=== PATIENT | female | born 1975 | race Hispanic/Latino ===

== ENCOUNTER 2019-08-08 10:35 | Emergency (ER) | payer OTHER, SELFPAY ==
[2019-08-08 10:40] VITALS: BP 117/75; PULSE 72; RESP 13; TEMP 35.8; O2SAT 99
--- NOTE | 2019-08-08 11:51 | DI.RAD.S_ITS ---
PROCEDURE: XR WRIST LT MIN 3V INDICATIONS: injury TECHNIQUE: 4 views of the wrist were acquired. COMPARISON: [facility], , WRIST MINIMUM 3 VIEWS LEFT, 11/18/2016, 15:39. FINDINGS: Bones: No fractures or dislocations. No suspicious bony lesions. Scaphoid view: Scaphoid is grossly intact. Soft tissues: No suspicious soft tissue calcifications. IMPRESSION: No acute left wrist fracture or dislocation. Dictated by: Michoacano Nuno M.D. on 08/08/2019 at 12:49 Approved by: Michoacano Nuno M.D. on 08/08/2019 at 12:52
--- NOTE | 2019-08-08 13:13 | ED.UPPEXIN ---
HPI - Extremity Injury (Upper) <Arnold DowdRODNEY jonesP - Last Filed: 08/08/19 21:12> General Chief Complaint: Extremity Injury, Upper Stated Complaint: LEFT WRIST HURTING TRIPPED AND CAUGHT SELF ON TABL Time Seen by Provider: 08/08/19 13:12 Source: patient Mode of arrival: Ambulatory Limitations: no limitations History of Present Illness HPI narrative: This is 44-year-old female, nonsmoker, who presents to ED with her spouse with chief complain of left crossing wrist pain for last 4-5 days. Patient had FOOSH on a desk to break a fall on Thursday while she was rushing to the bathroom to to vomit. Patient reports pain was not too bad initially and it has been getting worse the next day. Patient reports pain radiates up to her elbow and upper arm with movement. She noticed decreased active range of motion due to pain. Patient at times feels tingling and numbness radiating up to upper arm with some swelling on her affected hand. Patient right dominant hand. She has been using fbrh-gep-rrmpbjo small wrist brace for pain which has been help much. She had taken 1 dose of Motrin yesterday. Related Data Previous Rx's Medication Instructions Recorded soghjjbz-[id number]-FS 4 drp OTIC QID #10 ml 08/14/17 Allergies Allergy/AdvReac Type Severity Reaction Status Date / Time No Known Allergies Allergy Uncoded 01/13/18 12:41 Review of Systems <Arnold AbdiRODNEYP - Last Filed: 08/08/19 21:12> Review of Systems Narrative: General: Denies fever, chills, fatigue, malaise, sweats. HEENT: Denies sinus pain, ear pain, sore throat, difficulty swallowing, dizziness. Respiratory: Denies dyspnea, cough, wheezing, hemoptysis, sputum. Cardiovascular: Denies chest pain, palpitations, orthopnea, edema. Gastrointestinal: Denies nausea, vomiting, abdominal pain, diarrhea, constipation, melena. : Denies dysuria, frequency, incontinence, hematuria, urinary retention. Musculoskeletal: See HPI Skin: Denies rash, skin lesions, or other. Neurologic: Denies weakness, headache, numbness, change in speech, confusion, seizures, incoordination. Psychiatric: No concerning psychosocial issues. 12-point review of systems is negative except for those stated above. Patient History <MOISÉS Colon - Last Filed: 08/08/19 21:12> Surgical History History of 3 sections (Acute) Social History Smoking Status: Never smoker Exam <MOISÉS Colon - Last Filed: 08/08/19 21:12> Narrative Exam Narrative: General appearance: well developed, well nourished, in no acute distress. Head: normocephalic, atraumatic, no scalp lesions, non-tender. Eye: pupil equal, round. EOMI. Nose: nares patent. Oral: mucosa moist. Neck/Thyroid: neck supple, full range of motion, no visible masses. Skin: no suspicious rashes, lesions over visible areas. Warm and dry. Heart: no clubbing, no cyanosis, no edema. Lungs: Breathing even and unlabored. No stridor. No accessory muscles used. Chest: normal shape and expansion. Abdomen: non-obese, non-distended. Neurologic: alert and oriented. Cognitive exam, HYDROMETER TESTER and PNS grossly intact on informal exam. Psych: good eye contact, normal affect. Initial Vital Signs Initial Vital Signs: Vital Signs Temperature 96.4 F L 08/08/19 10:40 Pulse Rate 72 08/08/19 10:40 Respiratory Rate 13 08/08/19 10:40 Blood Pressure 117/75 08/08/19 10:40 Pulse Oximetry 99 08/08/19 10:40 Extrem Right upper extremity: shoulder/upper arm Details: normal to inspection and normal ROM and elbow/forearm Details: normal to inspection and normal ROM; no tenderness and no swelling Left upper extremity: normal to inspection, full ROM, normal capillary refill, wrist Details: normal to inspection, tenderness, abnormal ROM Details: pain with active ROM and pain with passive ROM and radial pulse present; no swelling, no unusual warmth, no abrasions, no lacerations and no deformity and hand <Franca Grey MD - Last Filed: 08/10/19 04:39> Initial Vital Signs Initial Vital Signs: Vital Signs Temperature 96.4 F L 08/08/19 10:40 Pulse Rate 72 08/08/19 10:40 Respiratory Rate 13 08/08/19 10:40 Blood Pressure 117/75 08/08/19 10:40 Pulse Oximetry 99 08/08/19 10:40 Procedures <MOISÉS Colon - Last Filed: 08/08/19 21:12> Orthopedic Splinting/Casting Injury #1: Side: left Upper Extremity Injury Location: wrist Upper Extremity Immobilizer: volar splint (Prefabricated) Post splinting neuro exam: intact Post splinting vascular exam: intact Placed by: Nursing Scores <MOISÉS Colon - Last Filed: 08/08/19 21:12> GCS Luis coma scale eye opening: Spontaneous Luis coma scale verbal response: Orientated Luis coma scale motor response: Obey commands Cary coma scale total score: 15 Course <MOISÉS Colon - Last Filed: 08/08/19 21:12> Orders Ordered: ED Orders 08/08/19 11:51 XR wrist LT min 3V Stat Vital Signs Vital signs: Vital Signs - 8 hr 08/08/19 13:45 Pulse Rate 73 Blood Pressure 125/66 <Franca Grey MD - Last Filed: 08/10/19 04:39> Orders Ordered: ED Orders 08/08/19 11:51 XR wrist LT min 3V Stat Vital Signs Vital signs: Vital Signs - 8 hr 08/08/19 13:45 Pulse Rate 73 Blood Pressure 125/66 MDM - Extremity Injury (Upper) <MOISÉS Colon - Last Filed: 08/08/19 21:12> Differential Diagnosis Differential diagnosis: Likely sprain and strain of wrist and fracture of wrist Medical Records Attestation: I reviewed the patient's medical records. Imaging Data XR-Wrist: Radiologist's impression: [address] [id number] XRay Report Signed Patient: Lizzette Mcconnell [facility]#: [id number] : 1975Acct:[id number] Age/Sex: 44 / FDate of Service: 08/08/19 Loc: ED Accession Number: [id number] Procedure: XR wrist LT min 3V Ordering Provider: Franca Grey MD PROCEDURE: XR WRIST LT MIN 3V INDICATIONS: injury TECHNIQUE: 4 views of the wrist were acquired. COMPARISON: [facility], , WRIST MINIMUM 3 VIEWS LEFT, 11/18/2016, 15:39. FINDINGS: Bones: No fractures or dislocations. No suspicious bony lesions. Scaphoid view: Scaphoid is grossly intact. Soft tissues: No suspicious soft tissue calcifications. IMPRESSION: No acute left wrist fracture or dislocation. Dictated by: Michoacano Nuno M.D. on 08/08/2019 at 12:49 Approved by: Michoacano Nuno M.D. on 08/08/2019 at 12:[address] [facility] Narrative Medical decision making narrative: This is a 44-year-old female who presents to ED with left wrist pain for 5 days after FOOSH on L hand to break a fall. Patient reports pain increases with movement and decreased active range of motion. Physical exam shows no deformity with intact distal sensation and pulses. X-ray test does not show any acute findings today. Applied prefabricated wrist splint for support and pain. Patient advised RICE therapy with nxfj-nao-trhmkdj ibuprofen/Motrin and Tylenol use for discomfort. X-ray findings were discussed with the patient. Patient advised to follow up with her primary care physician if pain persists for repeat imaging test. Patient verbalized understanding and agrees with the treatment plan. Discharge Plan Departure Patient Disposition: Home Clinical Impression: Sprain and strain of wrist Discharge Date/Time: 08/08/19 13:50 Instructions: DI for Wrist Sprain Activity Restrictions/Additional Instructions: You have been diagnosed with [left wrist sprain. There is no fracture, dislocation per x-ray test today.]. What to do: *Take your medications as directed. Please take safa-kmq-cegbidn Motrin from 400 mg to 800 mg 3 to 4 times (400 mg) a day with food. You can add Tylenol as needed for additional pain medication. Please use ?RICE? therapy such as Rest, Ice, Compression/Spliint/Acewra, and Elevation above the chest level. Please try to avoid getting swelling to the affected site since this may cause increasing pain. Please monitor for increasing pain, swelling, tingling/numbness, unable to move affected/below the injury site, cool limbs. *Follow up with your primary care provider in 2-3 days, call for an appointment. Let them know you were seen in the ED and that we asked you to be seen in follow up. *Return to ED if you have any new, worsening, or concerning symptoms, such as pain a improving next couple of weeks, chest pain, breathing difficulty, unable to tolerate fluids, decreased sensation and weakness on affected arm, or any acute concerns. If her pain continues after 2 weeks, you may need additional imaging test to compare.]. Prescriptions: No Action hhhryrqt-odtbommss-BO 10 ML drops,suspension 4 drp OTIC QID Qty: 10 RF: 0 Referrals: [facility] [Outside]
[2019-08-08 13:45] VITALS: BP 125/66; PULSE 73
== END 2019-08-08 13:50 | disposition home or self-care (01) ==
PROVIDERS: Emergency Provider Nurse Practitioner Family
DX: S63.502A Unspecified sprain of left wrist, initial encounter (principal); S66.912A Strain of unspecified muscle, fascia and tendon at wrist and hand level, left hand, initial encounter; W01.0XXA Fall on same level from slipping, tripping and stumbling without subsequent striking against object, initial encounter
CPT/HCPCS: 73110; 99283

== ENCOUNTER 2020-06-09 22:05 | Emergency (ER) | payer OTHER, SELFPAY ==
--- NOTE | 2020-06-09 22:18 | ED_ITS ---
HPI - Abdominal Pain General Chief Complaint: Abdominal Pain Stated Complaint: left side pain, several weeks Time Seen by Provider: 06/09/20 22:06 Source: patient and family Mode of arrival: Ambulatory Limitations: no limitations History of Present Illness HPI narrative: 45-year-old female nonsmoker with history of kidney stones presents with her significant other and a chief complaint of approximately a week to 2 weeks sudden onset left flank pain that now radiates into her left flank and left groin. At times she has greatly intensified pain without any obvious provocation or palliation. Much of the time, however, movement makes her discomfort worse. She has had nausea and vomiting but denies any change in bowel habits such as constipation or diarrhea. She denies any obvious dysuria, frequency or urgency. She denies runny nose, sore throat or cough, furthermore she denies any exposure to persons known to have coronavirus MD complaint: abdominal pain and flank pain Onset (ago): hour(s) Pain Consistency: intermittent Location: L flank Severity: moderate Quality: stabbing Radiation: LLQ and L flank Related Data Previous Rx's Medication Instructions Recorded wfdymzhi-ubqsidpzm-UJ 4 drp OTIC QID #10 ml 08/14/17 hydrocodone-acetaminophen 1 tab PO Q4-6H PRN #10 tab 06/09/20 ondansetron 4 mg PO TID-QID PRN #10 tab 06/09/20 Allergies Allergy/AdvReac Type Severity Reaction Status Date / Time latex Allergy Verified 06/09/20 22:18 lidocaine [From Xylocaine] Allergy Verified 06/09/20 22:18 Review of Systems Constitutional Constitutional: Denies chills, Denies fatigue, Denies fever(s), Denies frequent falls, Denies lethargy and Denies weakness Eyes Eyes: Denies change in vision, Denies eye discharge, Denies irritation and Denies loss of vision ENT Ears, Nose, Mouth, and Throat: Denies change in voice, Denies dizziness, Denies neck pain, Denies sore throat and Denies throat swelling Cardiovascular Cardiovascular: Denies chest pain, Denies irregular heart rhythm, Denies lightheadedness, Denies palpitations, Denies dyspnea, Denies dyspnea on exertion and Denies orthopnea Respiratory Respiratory: Denies cough, Denies dyspnea, Denies dyspnea on exertion and Denies wheezing Gastrointestinal Gastrointestinal: Reports abdominal pain, Denies change in bowel habits, Denies diarrhea, Reports nausea and Reports vomiting Musculoskeletal Musculoskeletal: Denies neck pain and Denies numbness Integumentary/Breasts Skin/Breast: Denies pruritus, Denies erythema, Denies rash and Denies wounds Neurologic Neurologic: Denies behavioral changes, Denies confusion, Denies dizziness, Denies frequent falls, Denies loss of vision, Denies numbness and Denies weakness Psychiatric Psychiatric: Denies anxiety, Denies behavioral changes, Denies confusion, Denies depression, Denies homicidal ideation and Denies suicidal ideation Endocrine Endocrine: Denies fatigue, Denies flushing and Denies palpitations Hematologic/Lymphatic Hematologic/Lymphatic: Denies easy bruising Allergic/Immunologic Allergic/Immunologic: Denies urticaria, Denies throat swelling and Denies wheezing Patient History Surgical History History of 3 sections (Acute) Social History Smoking Status: Never smoker Smoking Status: Never smoker Exam Narrative Exam Narrative: GENERAL: [45] year old patient appears stated age. Well- nourished, well-developed patient, in mild distress. HEAD: Atraumatic. Normocephalic. EYES: Pupils equal round and reactive. Extraocular motions intact. No scleral icterus. No injection or drainage. ENT: Nose without bleeding, purulent drainage. Throat without erythema, tonsillar hypertrophy or exudate. Airway patent. NECK: Trachea midline. Non tender CARDIOVASCULAR: Regular rate and rhythm without murmurs, gallops, or rubs. RESPIRATORY: Clear to auscultation. Breath sounds equal bilaterally. No wheezes, rales, or rhonchi. GASTROINTESTINAL: Abdomen soft, non-tender, nondistended. EXTREMITIES: No edema or joint tenderness. BACK: Nontender without deformity or crepitance. No flank tenderness. NEURO: AOx3. SKIN: No rash or erythema of visible areas Initial Vital Signs Initial Vital Signs: Vital Signs Temperature 98.2 F 06/09/20 22:19 Pulse Rate 81 06/09/20 22:19 Respiratory Rate 16 06/09/20 22:19 Blood Pressure 130/67 06/09/20 22:19 Pulse Oximetry 97 06/09/20 22:19 Course Orders Ordered: ED Orders 06/09/20 22:29 CT kidney ureter bladder (KUB) Stat 06/09/20 22:30 Basic Metabolic Panel Stat Complete Blood Count AUTO DIFF Stat Ondansetron HCl (Zofran) 4 mg IV Q4HR PRN PRN Reason: Nausea And Vomiting Last Admin: 06/09/20 22:44 Dose: 4 mg Documented by: ALLIE Discontinued Medications Hydrocodone Bitart/Acetaminophen (Vicodin 5/325 Prepack) 1 bottle MISC SEEINSTR ONE Stop: 06/09/20 23:22 Sodium Chloride (Normal Saline 0.9%) 1,000 mls @ 1,000 mls/hr IV BOLUS ONE Stop: 06/09/20 23:27 Last Admin: 06/09/20 22:44 Dose: 1,000 mls/hr Documented by: ALLIE Ketorolac Tromethamine (Toradol) 15 mg IV NOW ONE Stop: 06/09/20 22:29 Last Admin: 06/09/20 22:43 Dose: 15 mg Documented by: ALLIE Ondansetron HCl (Zofran Odt Prepack) 1 bottle MISC SEEINSTR ONE Stop: 06/09/20 23:22 Vital Signs Vital signs: Vital Signs - 8 hr 06/09/20 22:19 Temperature 98.2 F Pulse Rate 81 Respiratory Rate 16 Blood Pressure 130/67 Pulse Oximetry 97 MDM - Abdominal Pain Lab Data Result diagrams: 06/09/20 22:30 06/09/20 22:30 Labs: Lab Results 06/09/20 06/09/20 Range/Units 22:30 22:30 WBC 11.4 H (4.5-11.0) X10^3/uL RBC 4.70 (4.0-5.2) X10^6/uL Hgb 12.3 (12.0-16.0) g/dL Hct 38.0 (36-46) % MCV 80.8 (80-100) fL MCH 26.1 (26-34) PG MCHC 32.3 (30-36) % RDW 14.7 (11.6-14.8) % Plt Count 289 (150-400) X10^3/uL Neut % (Auto) 58.3 (50-75) % Lymph % (Auto) 32.8 (25-40) % [place] % (Auto) 5.7 (3-14) % Eos % (Auto) 2.3 (2-4) % Baso % (Auto) 0.9 (0-2) % Neut # (Auto) 6600 (6951-6331) /uL Lymph # (Auto) 3700 (3838-7136) /uL [place]kin # (Auto) 600 (0-900) /uL Eos # (Auto) 300 (0-450) /uL Baso # (Auto) 100 (0-100) /uL Sodium 139 (137-145) mmol/L Potassium 4.0 (3.4-5.1) mmol/L Chloride 105 (98-107) mmol/L Carbon Dioxide 27 (22-32) mmol/L BUN 14 (7-17) mg/dL Creatinine 0.69 (0.52-1.04) mg/dL Estimated GFR > 60.0 (>60) mL/min BUN/Creatinine Ratio 20.3 (6-22) Glucose 102 H (70-100) mg/dL Calcium 9.4 (8.4-10.2) mg/dL Point of care testing: Point of Care Testing Test Results Negative Urine Dip Bedside Urine Glucose Negative Bedside Urine Bilirubin - Negative Bedside Urine Ketone - Negative Urine Specific [place] 1.020 Bedside Urine Occult Blood - Negative Bedside Urine pH 6.0 Bedside Urine Protein - Negative Bedside Urine Urobilinogen - Negative Bedside Urine Nitrite - Negative Bedside Urine Leukocytes - Negative Esterase Imaging Data CT scan - abdomen/pelvis: Radiologist's Impression: Tiny Intrarenal calculi with no obstructive uropathy Complex left ovarian cyst Discharge Plan Departure Patient Disposition: Home Clinical Impression: Acute flank pain, Ovarian cyst Instructions: DI for Flank Pain Activity Restrictions/Additional Instructions: *You have been diagnosed with [left flank pain, possible passed kidney stone. Also complex cyst of your left ovary which will require ultrasound in follow- up.] *What to do: *Take medications as directed *Follow up with your primary care provider in 2-3 days, call for an appointment. Let them know you were seen in the Emergency Department and that we ask that you be seen in follow up *Return to ER if you should have any new, worsening or concerning symptoms, such as [worsening pain, persistent nausea, fever over 101F or other bothersome symptoms ] Prescriptions: New hydrocodone-acetaminophen 5-325 mg tablet 1 tab PO Q4-6H PRN (Reason: pain) Qty: 10 RF: 0 ondansetron 4 mg tablet,disintegrating 4 mg PO TID-QID PRN (Reason: nausea and vomiting) Qty: 10 RF: 0 No Action ujjunbnt-okysjxhcx-JL 10 ML drops,suspension 4 drp OTIC QID Qty: 10 RF: 0
[2020-06-09 22:19] VITALS: BP 130/67; PULSE 81; RESP 16; TEMP 36.8; O2SAT 97; BMI 32.5
--- NOTE | 2020-06-09 22:29 | DI.CT.S_ITS ---
PROCEDURE: CT KIDNEY URETER BLADDER (KUB) INDICATIONS: severe L flank pain, radiates to groin, vomiting TECHNIQUE: Noncontrast 5 mm thick sections acquired from the diaphragms to the symphysis. 5 mm thick coronal and sagittal reformats were then performed. For radiation dose reduction, the following was used: automated exposure control, adjustment of mA and/or kV according to patient size. COMPARISON: None. FINDINGS: Image quality: Excellent. Lung bases: Lung bases are clear. Heart size is normal. Urinary system: Both kidneys are normal in size. There is a 2 mm nonobstructing right-sided kidney stone, as on series 2, image 39. No hydronephrosis or perinephric fat stranding. A water density cyst is seen involving the superior pole of the right kidney that measures 9 mm. Both ureters appear non-dilated throughout their expected courses. Bladder wall thickness is normal; no calcified bladder stones. Other solid organs: Liver is normal in size. Gallbladder has been removed. Pancreas is normal in contours. Spleen is normal in size. No adrenal nodules. Peritoneum and bowel: Unenhanced bowel loops demonstrate normal wall thickness and caliber. No free fluid or air. A normal appendix is incidentally noted. Nodes and vessels: No retroperitoneal or mesenteric adenopathy by size criteria. Aorta and inferior vena cava are normal in caliber. Abdominal wall: No ventral hernias. Pelvis: No free pelvic fluid. No inguinal hernias or adenopathy. The uterus appears normal for age. No adnexal masses are seen. There is a 2.6 cm complex left ovarian cyst seen. Bones: No suspicious bony lesions. No vertebral body compression fractures. Minimal levoconvex lumbar scoliotic curvature. IMPRESSION: No imaging explanation is found for this patient's presenting symptoms. 2 mm nonobstructing right-sided kidney stone, without hydronephrosis on either side. 2.6 cm complex left ovarian cyst, which is most likely related to a hemorrhagic cyst. Please consider follow-up ultrasound for further evaluation. Incidental note is made of: Cholecystectomy Normal appendix Note: No significant discrepancy from the preliminary report. Dictated by: Ethan Dominguez M.D. on 06/10/2020 at 9:32 Approved by: Ethan Dominguez M.D. on 06/10/2020 at 9:36
[2020-06-09] MEDS: KETOROLAC 60 MG/2 ML VIAL 15 MG IV (22:43)
[2020-06-09] MEDS: SODIUM CHLORIDE 0.9% 1,000 ML 1000 ML IV (22:44)
[2020-06-09] MEDS: ONDANSETRON 4 MG/2 ML INJ IV (22:44)
[2020-06-09 22:47] LABS: Add Manual Diff / Slide Review NO; Basophils Absolute Auto 100 /uL (0-100); Basophils Percent Auto 0.9 % (0-2); Eosinophils Absolute Auto 300 /uL (0-450); Eosinophils Percent Auto 2.3 % (2-4); Hemoglobin 12.3 g/dL (12.0-16.0); Lymphocytes Absolute Auto 3700 /uL (1100-4500); Lymphocytes Percent Auto 32.8 % (25-40); Mean Corpuscular HGB Conc 32.3 % (30-36); Mean Corpuscular Hemoglobin 26.1 PG (26-34); Mean Corpuscular Volume 80.8 fL (80-100); Monocytes Absolute Auto 600 /uL (0-900); Monocytes Percent Auto 5.7 % (3-14); Neutrophils Absolute Auto 6600 /uL (1500-7000); Neutrophils Percent Auto 58.3 % (50-75); Platelet Count 289 X10^3/uL (150-400); Red Cell Distribution Width 14.7 % (11.6-14.8); White Blood Cell Count 11.4 X10^3/uL (4.5-11.0)
[2020-06-09 22:51] VITALS: PULSE 66; O2SAT 100
[2020-06-09 22:55] LABS: BUN Creatinine Ratio 20.3 (6-22); Blood Urea Nitrogen 14 mg/dL (7-17); Calcium 9.4 mg/dL (8.4-10.2); Carbon Dioxide 27 mmol/L (22-32); Chloride 105 mmol/L (98-107); Estimated Glomerular Filt Rate > 60.0 mL/min (>60); Glucose 102 mg/dL (70-100); HEMOLYSIS < 15 (0-50); Sodium 139 mmol/L (137-145)
[2020-06-09 23:00] VITALS: BP 123/63; PULSE 70; O2SAT 96
[2020-06-09 23:30] VITALS: BP 113/64; PULSE 69; O2SAT 99
[2020-06-09] MEDS: ONDANSETRON 4 MG ODT PREPACK 1 BOTTLE MISC (23:44)
[2020-06-09] MEDS: HYDROCODONE/ACET 5/325 PREPACK 1 BOTTLE MISC (23:44)
== END 2020-06-09 23:50 | disposition home or self-care (01) ==
PROVIDERS: Emergency Provider Emergency Medicine
DX: N83.202 Unspecified ovarian cyst, left side (principal); R10.9 Unspecified abdominal pain; R11.2 Nausea with vomiting, unspecified
CPT/HCPCS: 74176; 80048; 81003; 81025; 85025; 96361; 96374; 96375; 99283; 99284; J1885; J2405

== ENCOUNTER 2020-12-08 20:14 | Emergency (ER) | payer OTHER, SELFPAY ==
[2020-12-08] VITALS (7 sets, daily range): BP systolic 102–150; BP diastolic 57–79; PULSE 65–83; RESP 14–18; TEMP 36.5; O2SAT 94–100; BMI 31.9
[2020-12-08 20:38] LABS: Add Manual Diff / Slide Review NO; Basophils Absolute Auto 100 /uL (0-100); Eosinophils Absolute Auto 300 /uL (0-450); Eosinophils Percent Auto 2.8 % (2-4); Hematocrit 38.1 % (36-46); Hemoglobin 12.4 g/dL (12.0-16.0); Lymphocytes Absolute Auto 3700 /uL (1100-4500); Lymphocytes Percent Auto 35.8 % (25-40); Mean Corpuscular HGB Conc 32.6 % (30-36); Mean Corpuscular Hemoglobin 26.2 PG (26-34); Mean Corpuscular Volume 80.5 fL (80-100); Monocytes Absolute Auto 500 /uL (0-900); Monocytes Percent Auto 4.4 % (3-14); Neutrophils Absolute Auto 5900 /uL (1500-7000); Platelet Count 293 X10^3/uL (150-400); Red Blood Cell Count 4.74 X10^6/uL (4.0-5.2); Red Cell Distribution Width 15.6 % (11.6-14.8); White Blood Cell Count 10.5 X10^3/uL (4.5-11.0)
[2020-12-08 20:43] LABS: INR 1.1 (0.9-1.3); Prothrombin Time 12.6 SECONDS (10.1-12.7)
[2020-12-08 20:46] LABS: PTT Partial Thromboplastin Tim 29 SECONDS (26.4-36.2)
[2020-12-08 20:47] LABS: Alanine Aminotransferase 36 IU/L (<35); Albumin 4.8 g/dL (3.5-5.0); Albumin Globulin Ratio 1.3 (1.0-2.8); Alkaline Phosphatase 148 U/L (38-126); Aspartate Aminotransferase 38 IU/L (14-36); Bilirubin Total 0.2 mg/dL (0.2-1.3); Blood Urea Nitrogen 13 mg/dL (7-17); Calcium 9.2 mg/dL (8.4-10.2); Carbon Dioxide 25 mmol/L (22-32); Chloride 106 mmol/L (98-107); Estimated Glomerular Filt Rate > 60.0 mL/min (>60); Globulin 3.6 g/dL (1.7-4.1); Glucose 108 mg/dL (70-100); HEMOLYSIS 25 (0-50); Lipase 117 U/L (23-300); Potassium 3.8 mmol/L (3.4-5.1); Sodium 139 mmol/L (137-145); Total Protein 8.4 g/dL (6.3-8.2)
--- NOTE | 2020-12-08 21:47 | ED.ABDPAIN ---
HPI - Abdominal Pain General Chief Complaint: Abdominal Pain Stated Complaint: right side abdominal pain Time Seen by Provider: 12/08/20 21:46 Source: patient Mode of arrival: Ambulatory Limitations: no limitations History of Present Illness HPI narrative: This is a 45-year-old female comes emergency department with complaint of several weeks of right upper quadrant pain that is been coming increasingly constant and intense. She saw her physician earlier in the week who ordered an ultrasound but she has not been able to obtain it yet, she states they also told her that her liver felt enlarged on exam. Patient states tonight her pain had increased significantly. She states it feels like there is pressure or something squeezing on the right upper quadrant. Does radiate towards her back. She denies any fevers, no chills. She states she always feels cold. She had some dizziness earlier this week. She denies any nausea no vomiting. She has had some mild constipation but is having bowel movements regularly. Denies any urinary frequency, dysuria or sense of urgency. No discharge. Patient states she has been on a ketogenic diet over the past 2 months and has lost 18 lb. She denies any other past medical history. She has had a cholecystectomy, she has had C-sections in the past. No tobacco, alcohol or illicit. She follows through primary care with the [facility]. Related Data Previous Rx's Medication Instructions Recorded azxlovlq-topjeyeem-HB 4 drp OTIC QID #10 ml 08/14/17 hydrocodone-acetaminophen 1 tab PO Q4-6H PRN #10 tab 06/09/20 ondansetron 4 mg PO TID-QID PRN #10 tab 06/09/20 Allergies Allergy/AdvReac Type Severity Reaction Status Date / Time latex Allergy Verified 12/08/20 20:27 lidocaine [From Xylocaine] Allergy Verified 12/08/20 20:27 Penicillins Allergy Verified 12/08/20 20:27 Review of Systems Review of Systems ROS Unobtainable: All systems reviewed & are unremarkable except as noted in HPI and below Patient History Surgical History History of 3 sections Hx of cholecystectomy Social History Smoking Status: Never smoker Smoking Status: Never smoker alcohol intake frequency: holidays/special occasions only Substance Use Type: does not use Exam Narrative Exam Narrative: GENERAL: Alert and oriented x three, well-nourished female in mild distress. HEENT: Head normocephalic, atraumatic, EOMI, pupils reactive, face symmetric, moist mucous membranes NECK: Supple, full range of motion CARDIOVASCULAR: Regular rate and rhythm without murmurs, rubs or gallops. RESPIRATORY: Breath sounds equal bilaterally, no wheezes rales or rhonchi. ABDOMEN: Soft, positive for right upper quadrant tenderness. Normoactive bowel sounds all 4 quadrants. No guarding or rebound, rigidity, no mass : Mild right CVA tenderness, no left CVA tenderness. EXTREMITIES: Normal range of motion, no clubbing or edema. Neurovascularly intact NEUROLOGICAL: Cranial nerves II through XII grossly intact. Moving all extremities SKIN: Warm, dry, no petechiae, no rashes or lesions. Initial Vital Signs Initial Vital Signs: Vital Signs Temperature 97.7 F 12/08/20 20:22 Pulse Rate 83 12/08/20 20:22 Respiratory Rate 14 12/08/20 20:22 Blood Pressure 150/79 H 12/08/20 20:22 Pulse Oximetry 100 12/08/20 20:22 Course Orders Ordered: ED Orders 12/08/20 20:26 EKG-12 Lead Stat 12/08/20 20:27 Complete Blood Count AUTO DIFF Stat Comprehensive Metabolic Panel Stat Lipase Stat Partial Thromboplastin Time Stat Prothrombin Time INR Stat 12/08/20 22:07 US abdomen limited Stat Discontinued Medications Ketorolac Tromethamine (Ketorolac 60 Mg/2 Ml Vial) 15 mg IV NOW ONE Stop: 12/08/20 22:09 Last Admin: 12/08/20 22:16 Dose: 15 mg Documented by: MIRNA Reevaluation(s) Reevaluation #1: Patient is feeling improved after medication. reviewed labs and findings for today. Time: 23:57 Vital Signs Vital signs: Vital Signs - 8 hr 12/08/20 21:30 12/08/20 22:00 12/08/20 22:30 Pulse Rate 66 68 65 Respiratory Rate 18 14 18 Blood Pressure 115/68 120/73 105/62 Pulse Oximetry 99 100 98 12/08/20 23:00 12/08/20 23:30 Pulse Rate 68 69 Respiratory Rate 17 16 Blood Pressure 109/59 L 102/57 L Pulse Oximetry 96 94 MDM - Abdominal Pain Lab Data Attestation: I reviewed the patient's lab results. Result diagrams: 12/08/20 20:27 12/08/20 20:27 Labs: Lab Results 12/08/20 12/08/20 12/08/20 Range/Units 20:27 20:27 20:27 WBC 10.5 (4.5-11.0) X10^3/uL RBC 4.74 (4.0-5.2) X10^6/uL Hgb 12.4 (12.0-16.0) g/dL Hct 38.1 (36-46) % MCV 80.5 (80-100) fL MCH 26.2 (26-34) PG MCHC 32.6 (30-36) % RDW 15.6 H (11.6-14.8) % Plt Count 293 (150-400) X10^3/uL Neut % (Auto) 56.0 (50-75) % Lymph % (Auto) 35.8 (25-40) % [place] % (Auto) 4.4 (3-14) % Eos % (Auto) 2.8 (2-4) % Baso % (Auto) 1.0 (0-2) % Neut # (Auto) 5900 (4746-4759) /uL Lymph # (Auto) 3700 (8373-9298) /uL [place] # (Auto) 500 (0-900) /uL Eos # (Auto) 300 (0-450) /uL Baso # (Auto) 100 (0-100) /uL PT 12.6 (10.1-12.7) SECONDS INR 1.1 (0.9-1.3) APTT 29 (26.4-36.2) SECONDS Sodium 139 (137-145) mmol/L Potassium 3.8 (3.4-5.1) mmol/L Chloride 106 (98-107) mmol/L Carbon Dioxide 25 (22-32) mmol/L BUN 13 (7-17) mg/dL Creatinine 0.52 (0.52-1.04) mg/dL Estimated GFR > 60.0 (>60) mL/min BUN/Creatinine Ratio 25.0 H (6-22) Glucose 108 H (70-100) mg/dL Calcium 9.2 (8.4-10.2) mg/dL Total Bilirubin 0.2 (0.2-1.3) mg/dL AST 38 H (14-36) IU/L ALT 36 H (<35) IU/L Alkaline Phosphatase 148 H (38-126) U/L Total Protein 8.4 H (6.3-8.2) g/dL Albumin 4.8 (3.5-5.0) g/dL Globulin 3.6 (1.7-4.1) g/dL Albumin/Globulin Ratio 1.3 (1.0-2.8) Lipase 117 (23-300) U/L Point of care testing: Point of Care Testing Test Results Negative Urine Dip Bedside Urine Glucose Negative Bedside Urine Bilirubin - Negative Bedside Urine Ketone +/- 5 Urine Specific [place] 1.030 Bedside Urine Occult Blood - Negative Bedside Urine pH 5.5 Bedside Urine Protein - Negative Bedside Urine Urobilinogen - Negative Bedside Urine Nitrite - Negative Bedside Urine Leukocytes - Negative Esterase Imaging Data US - abdomen: Radiologist's Impression: Liver is normal in size, measuring 14.4 cm in length. Increased echogenicity without focal lesions. Normal hepatopetal flow is seen within the portal vein. Common bile duct is normal in diameter measuring 0.3 cm. Status post cholecystectomy. The right kidney is normal in echogenicity. Unremarkable limited evaluation of the pancreas. No acute findings. Hepatic steatosis. ECG Data Attestation: I personally reviewed and interpreted this ECG as follows: Prior ECG tracings: not available for review Interpretation: Sinus rhythm incomplete right bundle. Rate of 77 AL 172 QRS of 104 and QTC 443. Nonspecific T-wave change. MDM Narrative Medical decision making narrative: 45-year-old female comes in with several weeks of right upper quadrant pain which is all increased in intensity and frequency. She has some hepatic steatosis. Some mild LFT changes but no signs of choledocholithiasis. She has had a cholecystectomy in the past. Patient has follow-up with her primary care this week. I encouraged to keep that appointment. She can continue with ibuprofen as needed which she states they have at home. All questions answered and return precautions discussed. Discharge Plan Departure Patient Disposition: Home Clinical Impression: Abdominal pain, Fatty liver, History of cholecystectomy Instructions: DI for Nonalcoholic Fatty Liver Disease Activity Restrictions/Additional Instructions: Follow up with your physician for recheck. You may take ibuprofen to 800 mg every 8 hours as needed for pain Your ultrasound today shows normal size liver but does show some hepatic steatosis or fatty liver. Your labs do show elevation in your liver enzymes including an AST of 38, ALT of 36, alk-phos of 148 with a normal bilirubin and a normal lipase. Return for fevers greater 100.4 F, rapidly worsening abdominal, back or flank pain, new chest pain or shortness of breath, lightheadedness or passing out, persistent vomiting, black or bloody stools or other new or concerning symptoms. Prescriptions: No Action lgnobdle-ulicmyerh-QJ 10 ML drops,suspension 4 drp OTIC QID Qty: 10 RF: 0 hydrocodone-acetaminophen 5-325 mg tablet 1 tab PO Q4-6H PRN (Reason: pain) Qty: 10 RF: 0 ondansetron 4 mg tablet,disintegrating 4 mg PO TID-QID PRN (Reason: nausea and vomiting) Qty: 10 RF: 0
--- NOTE | 2020-12-08 22:07 | DI.US.S_ITS ---
PROCEDURE: US ABDOMEN LIMITED INDICATIONS: RUQ pain, hx yordan TECHNIQUE: Real-time focused scanning was performed of the abdomen, with image documentation. COMPARISON: None FINDINGS: No focal liver masses seen. Surgical absence of gallbladder. Ducts are not dilated. Common hepatic duct measures 1.8 mm. Common bile duct measures 3.2 mm. Pancreas not well visualized secondary to overlying bowel gas. Limited imaging of the right kidney demonstrates no hydronephrosis. IMPRESSION: 1. Remote cholecystectomy. 2. Otherwise unremarkable right upper quadrant ultrasound. Comment: Final report is concordant with preliminary interpretation provided by [facility]. Dictated by: David Richardson M.D. on 12/09/2020 at 5:28 Approved by: David Richardson M.D. on 12/09/2020 at 5:31
[2020-12-08] MEDS: KETOROLAC 60 MG/2 ML VIAL 15 MG IV (22:16)
== END 2020-12-09 00:06 | disposition home or self-care (01) ==
PROVIDERS: Emergency Provider Emergency Medicine
DX: R10.11 Right upper quadrant pain (principal); K76.0 Fatty (change of) liver, not elsewhere classified; Z90.49 Acquired absence of other specified parts of digestive tract
CPT/HCPCS: 36415; 76705; 80053; 81003; 81025; 83690; 85025; 85610; 85730; 93005; 96374; 99284; J1885

== ENCOUNTER 2021-10-28 18:44 | Emergency (ER) | payer OTHER, SELFPAY ==
[2021-10-28 18:51] VITALS: BP 125/75; PULSE 78; RESP 22; TEMP 37.2; O2SAT 100
--- NOTE | 2021-10-28 18:54 | DI.RAD.S_ITS ---
PROCEDURE: XR CHEST 2V INDICATIONS: fatigue/soa TECHNIQUE: 2 views of the chest were acquired. COMPARISON: None. FINDINGS: Surgical changes and devices: None. Lungs and pleura: There are indistinct nodular opacities peripherally in the left mid lung. No pleural effusions or pneumothorax. Mediastinum: Mediastinal contours are normal. Heart size is normal. Bones and chest wall: No suspicious bony abnormalities. Soft tissues appear unremarkable. IMPRESSION: 1. Indistinct nodular opacities peripherally in the left mid lung nonspecific but may reflect atypical pneumonia. Dictated by: Mark Huang M.D. on 10/28/2021 at 19:07 Approved by: Mark Huang M.D. on 10/28/2021 at 19:08
--- NOTE | 2021-10-28 21:43 | ED.URI ---
HPI - URI/Sore Throat General Chief Complaint: Fever Stated Complaint: COVID+, Not Getting Better Time Seen by Provider: 10/28/21 21:33 Source: patient Mode of arrival: Ambulatory History of Present Illness HPI Narrative: Patient owns her own business. Started symptoms on October 13, 2021. Had cough cold congestion fever and chills. No dyspnea. Patient is not COVID vaccinated. Had positive COVID test last Thursday. Has been quarantine since then. No fever body aches chills now. Just cough. Has low COVID risk factors otherwise. Related Data Previous Rx's Medication Instructions Recorded usgihjfp-vhrtodndc-prutbyhbp 3.5 4 drp OTIC QID #10 ml 08/14/ mg-10,000 unit/mL-1 % ear drops,susp hydrocodone 5 mg-acetaminophen 325 1 tab PO Q4-6H PRN #10 tab 06/09/20 mg tablet ondansetron 4 mg disintegrating 4 mg PO TID-QID PRN #10 tab 06/09/20 tablet Allergies Allergy/AdvReac Type Severity Reaction Status Date / Time latex Allergy Verified 12/08/20 20:27 lidocaine [From Xylocaine] Allergy Verified 12/08/20 20:27 Penicillins Allergy Verified 12/08/20 20:27 Review of Systems Review of Systems Narrative: GENERAL: Denies chills, fatigue, malaise, fever, sweats. HEENT: Denies sinus pain, ear pain, sore throat RESPIRATORY: Denies dyspnea, positive for cough CARDIOVASCULAR: Denies chest pain, palpitations GASTROINTESTINAL: Denies nausea, vomiting, abdominal pain : Denies dysuria, frequency, hematuria MUSCULOSKELETAL: denies muscle or bony pain SKIN: Denies rash, skin lesions NEUROLOGIC: Denies weakness, numbness ROS Unobtainable: All systems reviewed & are unremarkable except as noted in HPI and below Patient History Surgical History History of 3 sections Hx of cholecystectomy Social History Smoking Status: Never smoker Smoking Status: Never smoker alcohol intake frequency: holidays/special occasions only Substance Use Type: does not use Exam Narrative Exam Narrative: GENERAL: in no distress, not toxic not dyspneic HEAD: Normocephalic. EYES: Pupils equal round No scleral icterus. NECK: Trachea midline. CARDIOVASCULAR: Regular rate and rhythm without murmurs RESPIRATORY: Clear to auscultation. Breath sounds equal bilaterally. No wheezes, rales, or rhonchi. Has dry cough. Speaks full sentences BACK: No flank tenderness. NEURO: AOx4. SKIN: Warm and dry PSYCH: Not anxious, is cooperative Initial Vital Signs Initial Vital Signs: Vital Signs Temperature 99.0 F 10/28/21 18:51 Pulse Rate 78 10/28/21 18:51 Respiratory Rate 22 10/28/21 18:51 Blood Pressure 125/75 10/28/21 18:51 Pulse Oximetry 100 10/28/21 18:51 Course Course Course Narrative: No new issues during course of stay Orders Ordered: ED Orders 10/28/21 18:54 Chest [XR chest 2V] Stat Reevaluation(s) Reevaluation #1: Reviewed x-ray results with patient. Exam and vital signs are reassuring. No blood work indicated. Not toxic not dyspneic. Agrees for continue quarantine. She does have a family doctor to follow up with. Agrees with fjfj-sbr-jhlspph medications for cough. Time: 21:47 Vital Signs Vital signs: Vital Signs - 8 hr 10/28/21 18:51 10/28/21 21:51 Temperature 99.0 F Pulse Rate 78 80 Respiratory Rate 22 18 Blood Pressure 125/75 124/76 Pulse Oximetry 100 99 MDM - URI/Sore Throat Differential Diagnosis Differential diagnosis: Likely upper respiratory infection, viral infection, bronchitis and other (COVID-19) Imaging Data Chest x-ray: Radiologist's Impression: [address] [address] XRay Report Signed Patient: Lizzette Mcconnell MR#: [id number] : 1975 Acct:[id number] Age/Sex: 46 / F Date of Service: 10/28/21 Loc: ED Accession Number: [id number] ?? Procedure: XR chest 2V Ordering Provider: John Marie MD PROCEDURE:? XR CHEST 2V ? INDICATIONS:? fatigue/soa ? TECHNIQUE:? 2 views of the chest were acquired.? ? COMPARISON:? None. ? FINDINGS:? ? Surgical changes and devices:? None.? ? Lungs and pleura:? There are indistinct nodular opacities peripherally in the left mid lung.? No pleural effusions or pneumothorax.? ? Mediastinum:? Mediastinal contours are normal.? Heart size is normal.? ? Bones and chest wall:? No suspicious bony abnormalities.? Soft tissues appear unremarkable.? ? IMPRESSION:? ? 1.? Indistinct nodular opacities peripherally in the left mid lung nonspecific but may reflect atypical pneumonia. ? ? ? Dictated by: Mark Huang M.D. on 10/28/2021 at 19:07 ? ? Approved by: Mark Huang M.D. on 10/28/2021 at 19:08 ? MDM Narrative Medical decision making narrative: Appropriate for discharge home. Exam and vital signs and imaging reassuring. Not dyspneic. Not toxic. Not hypoxic or tachycardic. No blood work indicated. Return precautions reviewed with patient. She does agree for discharge home and follow-up. She does have a family doctor. Discharge Plan Departure Patient Disposition: Home Clinical Impression: COVID-19 Instructions: DI for COVID-19 (Suspected or Confirmed ) Activity Restrictions/Additional Instructions: Keep well hydrated. Return if worse if any questions concerns. See family doctor in a week for recheck. Return if any trouble breathing or shortness of breath. May take hrvc-jtu-vjdrqsx Mucinex. Prescriptions: No Action kzcqnphp-ejazmnqbg-OI 10 ML drops,suspension 4 drp OTIC QID Qty: 10 0RF hydrocodone-acetaminophen 5-325 mg tablet 1 tab PO Q4-6H PRN (Reason: pain) Qty: 10 0RF ondansetron 4 mg tablet,disintegrating 4 mg PO TID-QID PRN (Reason: nausea and vomiting) Qty: 10 0RF Referrals: Rex Bee MD [Primary Care Provider] -
--- NOTE | 2021-10-28 21:50 | PC.NURSE ---
pt c/o body aches and not feeling well, pt states she along with her family were dc with COVID the family members are feeling better but she has continued to not feel well
[2021-10-28 21:51] VITALS: BP 124/76; PULSE 80; RESP 18; O2SAT 99
== END 2021-10-28 21:52 | disposition home or self-care (01) ==
PROVIDERS: Emergency Provider Emergency Medicine; PCP Family Medicine
DX: U07.1 COVID-19 (principal)
CPT/HCPCS: 71046; 99281; 99283

== ENCOUNTER 2022-02-10 18:42 | Emergency (ER) | payer OTHER, SELFPAY ==
[2022-02-10 19:04] VITALS: BP 115/68; PULSE 78; RESP 18; TEMP 36.4; O2SAT 100; BMI 32.1
[2022-02-10 20:39] LABS: Add Manual Diff / Slide Review NO; Basophils Absolute Auto 100 /uL (0-100); Basophils Percent Auto 1.1 % (0-2); Eosinophils Absolute Auto 200 /uL (0-450); Eosinophils Percent Auto 2.2 % (2-4); Hematocrit 38.8 % (36-46); Hemoglobin 12.4 g/dL (12.0-16.0); Lymphocytes Absolute Auto 3600 /uL (1100-4500); Lymphocytes Percent Auto 38.7 % (25-40); Mean Corpuscular HGB Conc 32.1 % (30-36); Mean Corpuscular Hemoglobin 26.4 PG (26-34); Mean Corpuscular Volume 82.3 fL (80-100); Monocytes Absolute Auto 500 /uL (0-900); Monocytes Percent Auto 4.8 % (3-14); Neutrophils Absolute Auto 5000 /uL (1500-7000); Neutrophils Percent Auto 53.2 % (50-75); Platelet Count 326 X10^3/uL (150-400); Red Blood Cell Count 4.71 X10^6/uL (4.0-5.2); Red Cell Distribution Width 14.6 % (11.6-14.8); White Blood Cell Count 9.4 X10^3/uL (4.5-11.0)
[2022-02-10 20:42] LABS: Alanine Aminotransferase 26 IU/L (<35); Albumin 4.7 g/dL (3.5-5.0); Albumin Globulin Ratio 1.3 (1.0-2.8); Alkaline Phosphatase 121 U/L (38-126); Aspartate Aminotransferase 36 IU/L (14-36); BUN Creatinine Ratio 11.6 (6-22); Bilirubin Total 0.3 mg/dL (0.2-1.3); Blood Urea Nitrogen 8 mg/dL (7-17); Carbon Dioxide 27 mmol/L (22-32); Chloride 105 mmol/L (98-107); Estimated Glomerular Filt Rate > 60 mL/min (>60); Globulin 3.5 g/dL (1.7-4.1); Glucose 98 mg/dL (70-100); HEMOLYSIS < 15 (0-50); Lipase 101 U/L (23-300); Potassium 4.2 mmol/L (3.4-5.1); Sodium 139 mmol/L (137-145); Total Protein 8.2 g/dL (6.3-8.2)
--- NOTE | 2022-02-10 21:47 | ED_ITS ---
HPI - General Adult General Chief complaint: Abdominal Pain Stated complaint: Left Back/Abd Pain Time Seen by Provider: 02/10/22 20:33 Source: patient Mode of arrival: Ambulatory History of Present Illness HPI narrative: 47-year-old woman with no significant medical history comes in complaining of left flank pain that is been progressively worse for the last 48 hours. She does note that she did have a kidney stone when she was immediately a number of years ago but has not had problems since. She describes no fevers, vomiting, diarrhea. She is just finishing her menstrual cycle and so isn't sure if she has had hematuria. She does not describe dysuria. Related Data Previous Rx's Medication Instructions Recorded [id number] 3.5 4 drp OTIC QID #10 ml 08/14/17 mg-10,000 unit/mL-1 % ear drops,susp hydrocodone 5 mg-acetaminophen 325 1 tab PO Q4-6H PRN #10 tab 06/09/20 mg tablet ondansetron 4 mg disintegrating 4 mg PO TID-QID PRN #10 tab 06/09/20 tablet Allergies Allergy/AdvReac Type Severity Reaction Status Date / Time latex Allergy Verified 02/10/22 19:04 lidocaine [From Xylocaine] Allergy Verified 02/10/22 19:04 Penicillins Allergy Verified 02/10/22 19:04 Review of Systems Review of Systems Narrative: Remainder of complete review of systems is otherwise unremarkable except for that included in the HPI. Patient History Surgical History History of 3 sections Hx of cholecystectomy Social History Smoking Status: Never smoker Smoking Status: Never smoker alcohol intake frequency: holidays/special occasions only Substance Use Type: does not use Exam Initial Vital Signs Initial Vital Signs: Vital Signs Temperature 97.6 F 02/10/22 19:04 Pulse Rate 78 02/10/22 19:04 Respiratory Rate 18 02/10/22 19:04 Blood Pressure 115/68 02/10/22 19:04 Pulse Oximetry 100 02/10/22 19:04 General: Healthy appearing, in no acute distress. Able to give a complete and coherent history. Well-nourished well-developed HEENT: Moist mucous membranes, normal sclera with reactive pupils, Neck: No JVD, supple Respiratory: Lungs are clear to auscultation, no wheezing no rales no rhonchi. Full and symmetrical air movement Cardiac: Regular rate and rhythm no murmurs no bruits Abdomen: Soft, nontender, good bowel tones, mild left flank pain Skin: Warm and dry, no rashes Neurologic: Grossly neurologically intact with no obvious asymmetries or abnormalities Extremities: No trauma, well perfused Psych: Cooperative, appropriate insight and affect Course Orders Ordered: ED Orders 02/10/22 20:14 Complete Blood Count AUTO DIFF Stat Comprehensive Metabolic Panel Stat Lipase Stat 02/10/22 22:00 CT kidney ureter bladder (KUB) Stat Discontinued Medications Sodium Chloride (Normal Saline 0.9%) 1,000 mls @ 1,000 mls/hr IV BOLUS ONE Stop: 02/11/22 00:02 Last Admin: 02/10/22 23:22 Dose: 1,000 mls/hr Documented by: KAYLEN Ketorolac Tromethamine (Ketorolac 30 Mg/Ml Vial) 15 mg IV NOW ONE Stop: 02/10/22 23:04 Last Admin: 02/10/22 23:22 Dose: 15 mg Documented by: KAYLEN Ondansetron HCl (Ondansetron 4 Mg/2 Ml Inj) 4 mg IV NOW ONE Stop: 02/10/22 23:04 Last Admin: 02/10/22 23:22 Dose: 4 mg Documented by: KAYLEN Vital Signs Vital signs: Vital Signs - 8 hr 02/10/22 19:04 Temperature 97.6 F Pulse Rate 78 Respiratory Rate 18 Blood Pressure 115/68 Pulse Oximetry 100 Medical Decision Making Lab Data Result diagrams: 02/10/22 20:14 02/10/22 20:14 Labs: Lab Results 02/10/22 02/10/22 Range/Units 20:14 20:14 WBC 9.4 (4.5-11.0) X10^3/uL RBC 4.71 (4.0-5.2) X10^6/uL Hgb 12.4 (12.0-16.0) g/dL Hct 38.8 (36-46) % MCV 82.3 (80-100) fL MCH 26.4 (26-34) PG MCHC 32.1 (30-36) % RDW 14.6 (11.6-14.8) % Plt Count 326 (150-400) X10^3/uL Neut % (Auto) 53.2 (50-75) % Lymph % (Auto) 38.7 (25-40) % [place] % (Auto) 4.8 (3-14) % Eos % (Auto) 2.2 (2-4) % Baso % (Auto) 1.1 (0-2) % Neut # (Auto) 5000 (5917-5426) /uL Lymph # (Auto) 3600 (9832-8397) /uL [place] # (Auto) 500 (0-900) /uL Eos # (Auto) 200 (0-450) /uL Baso # (Auto) 100 (0-100) /uL Sodium 139 (137-145) mmol/L Potassium 4.2 (3.4-5.1) mmol/L Chloride 105 (98-107) mmol/L Carbon Dioxide 27 (22-32) mmol/L BUN 8 (7-17) mg/dL Creatinine 0.69 (0.52-1.04) mg/dL Estimated GFR > 60 (>60) mL/min BUN/Creatinine Ratio 11.6 (6-22) Glucose 98 (70-100) mg/dL Calcium 9.0 (8.4-10.2) mg/dL Total Bilirubin 0.3 (0.2-1.3) mg/dL AST 36 (14-36) IU/L ALT 26 (<35) IU/L Alkaline Phosphatase 121 (38-126) U/L Total Protein 8.2 (6.3-8.2) g/dL Albumin 4.7 (3.5-5.0) g/dL Globulin 3.5 (1.7-4.1) g/dL Albumin/Globulin Ratio 1.3 (1.0-2.8) Lipase 101 (23-300) U/L Urine Dip Bedside Urine Glucose Negative Bedside Urine Bilirubin - Negative Bedside Urine Ketone - Negative Urine Specific [place] 1.020 Bedside Urine Occult Blood - Negative Bedside Urine pH 6.0 Bedside Urine Protein - Negative Bedside Urine Urobilinogen - Negative Bedside Urine Nitrite - Negative Bedside Urine Leukocytes - Negative Esterase Point of care testing: Urine Dip Bedside Urine Glucose Negative Bedside Urine Bilirubin - Negative Bedside Urine Ketone - Negative Urine Specific [place] 1.020 Bedside Urine Occult Blood - Negative Bedside Urine pH 6.0 Bedside Urine Protein - Negative Bedside Urine Urobilinogen - Negative Bedside Urine Nitrite - Negative Bedside Urine Leukocytes - Negative Esterase Imaging Data CT scan - abdomen/pelvis: Radiologist's Impression: FINDINGS:? Image quality:? Excellent.? ? Lung bases:? Lung bases are clear.? ? Heart:? Heart is normal in size. ? URINARY: Right Kidney:? There is a small 0.2 cm nonobstructing stone within the interpolar region. ?No hydronephrosis. Right Ureter:? No hydroureter.? ? Left Kidney: ? No stones or hydronephrosis. Left Ureter:? No hydroureter.? ? Bladder:? Normal wall thickness. No stones. ? ? ? ABDOMEN: Liver:? No mass lesion. Gallbladder:? Surgically absent. Biliary ducts:? No biliary ductal dilatation.? ? Pancreas:? Unremarkable.? ? Spleen:? Normal in size.? ? Adrenal Glands:? No adrenal nodules.? ? ? Stomach and Bowel:? Stomach, small bowel loops, and colon are normal in caliber and wall thickness.? The appendix is normal in appearance.? There are few colonic diverticula without acute diverticulitis. Peritoneum:? No abnormal intraperitoneal fluid.? No free air.? ? Ventral Wall: ? No hernia.? Abdominal Nodes:? No retroperitoneal or mesenteric adenopathy by size criteria.? Vessels:? Aorta and inferior vena cava are normal in size.? ? PELVIS: Pelvic Organs:? The uterus is lobulated in contour and mildly prominent in size suggestive of uterine fibroids.? There is a right ovarian cyst measuring up to 1.7 cm likely representing a follicular cyst.? ? Bladder:? Unremarkable.? ? Pelvic Nodes: No enlarged lymph nodes.? Miscellaneous: No inguinal hernias are seen. ? ? ? Bones:? Visualized osseous structures demonstrate no suspicious focal lesions. IMPRESSION:? ? 1. Small nonobstructing right renal stone.? No evidence of obstructive uropathy in the right or left kidneys. ? 2. No evidence of appendicitis. ? 3. Colonic diverticulosis without acute diverticulitis.? ? Dictated by: Mark Huang M.D. on 02/10/2022 at 22:44? ?? MDM Narrative Medical decision making narrative: 47-year-old woman presents with left-sided flank pain. CT scan and labs are reassuring. 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 On Re-evaluation there is no obvious skin changes or rash to suggest shingles. She does have quite a bit of paraspinous tenderness rather than flank pain and this may simply be musculoskeletal in nature. All of this is reviewed with her with recommendations to continue with ibuprofen or Tylenol as needed along with ice and heat. If she has new or changing symptoms she will need to return for further evaluation. Questions were answered and she is safe for home discharge Discharge Plan Departure Patient Disposition: Home Clinical Impression: Low back pain Qualifiers: Chronicity: acute Back pain laterality: left Sciatica presence: without sciatica Qualified Code(s): M54.50 - Low back pain, unspecified Instructions: DI for Low Back Pain Activity Restrictions/Additional Instructions: Thank you for coming in tonight Your blood work is reassuring and your CT scan does not show any acute findings. You do not have any acute infections such as diverticulitis or a kidney infection. You do not have kidney stones. With your skin exam, I am not concerned for shingles however sometimes you can have a day or 2 of severe pain before you have a shingles outbreak. If you do notice blistering over your skin in the area where you are hurting than please return to the emergency department. Given the point tenderness on the left side of your spine this may simply be an acute back strain with spasm. Using 400 mg of ibuprofen (2 txmp-wff-[id number] pills) and 1 Tylenol every 6 hours can be very helpful in controlling pain. I wish you the best Prescriptions: No Action [id number]-[id number] 10 ML drops,suspension 4 drp OTIC QID Qty: 10 0RF hydrocodone-acetaminophen 5-325 mg tablet 1 tab PO Q4-6H PRN (Reason: pain) Qty: 10 0RF ondansetron 4 mg tablet,disintegrating 4 mg PO TID-QID PRN (Reason: nausea and vomiting) Qty: 10 0RF Referrals: Rex Bee MD [Primary Care Provider] -
--- NOTE | 2022-02-10 22:00 | DI.CT.S_ITS ---
PROCEDURE: CT KIDNEY URETER BLADDER (KUB) INDICATIONS: left flank pain TECHNIQUE: Axial sections were acquired from the lung bases to the pubic symphysis. Coronal and sagittal reformats were performed. For radiation dose reduction, the following was used: automated exposure control, adjustment of mA and/or kV according to patient size. COMPARISON: [facility], CT, CT KIDNEY URETER BLADDER (KUB), 06/09/2020, 22:33. FINDINGS: Image quality: Excellent. Lung bases: Lung bases are clear. Heart: Heart is normal in size. URINARY: Right Kidney: There is a small 0.2 cm nonobstructing stone within the interpolar region. No hydronephrosis. Right Ureter: No hydroureter. Left Kidney: No stones or hydronephrosis. Left Ureter: No hydroureter. Bladder: Normal wall thickness. No stones. ABDOMEN: Liver: No mass lesion. Gallbladder: Surgically absent. Biliary ducts: No biliary ductal dilatation. Pancreas: Unremarkable. Spleen: Normal in size. Adrenal Glands: No adrenal nodules. Stomach and Bowel: Stomach, small bowel loops, and colon are normal in caliber and wall thickness. The appendix is normal in appearance. There are few colonic diverticula without acute diverticulitis. Peritoneum: No abnormal intraperitoneal fluid. No free air. Ventral Wall: No hernia. Abdominal Nodes: No retroperitoneal or mesenteric adenopathy by size criteria. Vessels: Aorta and inferior vena cava are normal in size. PELVIS: Pelvic Organs: The uterus is lobulated in contour and mildly prominent in size suggestive of uterine fibroids. There is a right ovarian cyst measuring up to 1.7 cm likely representing a follicular cyst. Bladder: Unremarkable. Pelvic Nodes: No enlarged lymph nodes. Miscellaneous: No inguinal hernias are seen. Bones: Visualized osseous structures demonstrate no suspicious focal lesions. IMPRESSION: 1. Small nonobstructing right renal stone. No evidence of obstructive uropathy in the right or left kidneys. 2. No evidence of appendicitis. 3. Colonic diverticulosis without acute diverticulitis. Dictated by: Mark Huang M.D. on 02/10/2022 at 22:44 Approved by: Mark Huang M.D. on 02/10/2022 at 22:49
[2022-02-10] MEDS: SODIUM CHLORIDE 0.9% 1,000 ML 1000 ML IV (23:22)
[2022-02-10] MEDS: ONDANSETRON 4 MG/2 ML INJ IV (23:22)
[2022-02-10] MEDS: KETOROLAC 30 MG/ML VIAL 15 MG IV (23:22)
[2022-02-11 00:38] VITALS: BP 125/61; PULSE 70; RESP 16; O2SAT 100
== END 2022-02-11 00:46 | disposition home or self-care (01) ==
PROVIDERS: Emergency Provider Emergency Medicine; PCP Family Medicine
DX: M54.50 Low back pain, unspecified (principal)
CPT/HCPCS: 36415; 74176; 80053; 81003; 83690; 85025; 96374; 96375; 99284; J1885; J2405

== ENCOUNTER → 2022-03-05 16:36 | Outpatient (CLI) | payer OTHER, SELFPAY ==
[2022-03-05 18:04] LABS: COVID19 -Nasal RAPID Negative (Negative)
== END ==
PROVIDERS: PCP Family Medicine; Referring Provider Family Medicine; Visit Provider Family Medicine
DX: Z01.812 Encounter for preprocedural laboratory examination (principal); Z20.822 Contact with and (suspected) exposure to COVID-19
CPT/HCPCS: 87635; C9803

== ENCOUNTER → 2022-03-06 07:01 | Outpatient (CLI) | payer OTHER, SELFPAY ==
--- NOTE | 2022-03-10 14:14 | PM.PFT.1 ---
Pulmonary Function Test Referral & Results Date Patient Seen: 03/06/22 Requesting provider: Rex Bee Results: The spirometry demonstrates an FVC of 3.09 L which is 85% of predicted. The FEV1 was measured at 2.77 L which is 95% of predicted. The FEV1/FVC ratio was 90 which is 110% of predicted. Following the administration of bronchodilator there was no notable change to above normal numbers Interpretation: This study demonstrates normal forced spirometry
== END ==
PROVIDERS: PCP Family Medicine; Referring Provider Family Medicine; Visit Provider Family Medicine
DX: R06.00 Dyspnea, unspecified (principal)
CPT/HCPCS: 94060

== ENCOUNTER 2023-07-18 11:18 | Emergency (ER) | payer OTHER, SELFPAY ==
[2023-07-18 11:46] VITALS: BP 124/76; PULSE 81; RESP 17; TEMP 36.9; O2SAT 98; BMI 32.5
--- NOTE | 2023-07-18 12:26 | ED.DENTAL ---
HPI - Dental/Oral <Jonnie Whiting PA-C - Last Filed: 07/18/23 12:50> General Chief complaint: Dental/Oral Stated complaint: L/ facial pain and swelling/ thinks infected tooth Time Seen by Provider: 07/18/23 11:21 Source: patient Mode of arrival: Ambulatory History of Present Illness HPI Narrative: This is a 48-year-old female presents to the emergency department due to left-sided dental pain for the last 4 days. She states she also had an episode of this about 3 weeks ago which temporarily improved after being prescribed antibiotics. She states that she has an appointment with her dentist on Thursday. Denies any difficulty breathing or swallowing. Denies any fevers. States that the pain begins in her left upper cheek with a small amount of radiation to the left side of her head. Related Data Previous Rx's Medication Instructions Recorded penicillin V potassium 250 mg 250 mg PO QID 10 days #40 tabs 07/18/23 tablet prednisone 20 mg tablet 40 mg (2 x 20 mg) PO DAILY #10 tabs 07/18/23 Allergies Allergy/AdvReac Type Severity Reaction Status Date / Time latex Allergy Rash Verified 07/18/23 11:45 lidocaine [From Xylocaine] Allergy Palpitations, Verified 07/18/23 11:45 passed out Review of Systems <GLORIA Love Last Filed: 07/18/23 12:50> Review of Systems Narrative: GENERAL: Denies chills, fatigue, malaise, fever, sweats. HEENT: Reports left upper dental pain. Denies sinus pain, ear pain, sore throat, difficulty swallowing, dizziness. RESPIRATORY: Denies dyspnea, cough, wheezing, hemoptysis, sputum. CARDIOVASCULAR: Denies chest pain, palpitations, orthopnea, edema, GASTROINTESTINAL: Denies nausea, vomiting, abdominal pain, diarrhea, constipation, melena. : Denies dysuria, frequency, incontinence, hematuria, urinary retention. MUSCULOSKELETAL: denies weakness, joint pain, or bony pain SKIN: Denies rash, skin lesions, or other NEUROLOGIC: Denies weakness, headache, numbness, change in speech, confusion, seizures, incoordination. PSYCHIATRIC: No concerning psychosocial issues. 12 point review of systems is negative except for those stated above Patient History <Jonnie Whiting PA-C - Last Filed: 07/18/23 12:50> Surgical History History of 3 sections Hx of cholecystectomy Social History Smoking Status: Never smoker Smoking Status: Never smoker alcohol intake frequency: holidays/special occasions only Substance Use Type: does not use Exam <GLORIA Love Last Filed: 07/18/23 12:50> Narrative Exam Narrative: GENERAL: Well-developed patient, in mild distress. HEAD: Atraumatic. Normocephalic. EYES: Pupils equal round and reactive. Extraocular motions intact. No scleral icterus. No injection or drainage. ENT: Mild erythema to the gumline the left upper teeth. No periodontal or periapical abscesses. Nose without bleeding, purulent drainage. Throat without erythema, tonsillar hypertrophy or exudate. Airway patent. NECK: Trachea midline. Non tender CARDIOVASCULAR: Regular rate and rhythm without murmurs, gallops, or rubs. RESPIRATORY: Clear to auscultation. Breath sounds equal bilaterally. No wheezes, rales, or rhonchi. GASTROINTESTINAL: Abdomen soft, non-tender, nondistended. EXTREMITIES: No edema or joint tenderness. BACK: Nontender without deformity or crepitance. No flank tenderness. NEURO: AOx3. SKIN: No rash or erythema of visible areas Initial Vital Signs Initial Vital Signs: Vital Signs Temperature 98.4 F 07/18/23 11:46 Pulse Rate 81 07/18/23 11:46 Respiratory Rate 17 07/18/23 11:46 Blood Pressure 124/76 07/18/23 11:46 Pulse Oximetry 98 07/18/23 11:46 Oxygen Delivery Method Room Air 07/18/23 11:46 <Ronaldo Bills DO - Last Filed: 07/18/23 16:02> Initial Vital Signs Initial Vital Signs: Vital Signs Temperature 98.4 F 07/18/23 11:46 Pulse Rate 81 07/18/23 11:46 Respiratory Rate 17 07/18/23 11:46 Blood Pressure 124/76 07/18/23 11:46 Pulse Oximetry 98 07/18/23 11:46 Oxygen Delivery Method Room Air 07/18/23 11:46 Course <GLORIA Love Last Filed: 07/18/23 12:50> Vital Signs Vital signs: Vital Signs - 8 hr 07/18/23 11:46 Temperature 98.4 F Pulse Rate 81 Respiratory Rate 17 Blood Pressure 124/76 Pulse Oximetry 98 Oxygen Delivery Method Room Air <Ronaldo Bills DO - Last Filed: 07/18/23 16:02> Vital Signs Vital signs: Vital Signs - 8 hr 07/18/23 11:46 Temperature 98.4 F Pulse Rate 81 Respiratory Rate 17 Blood Pressure 124/76 Pulse Oximetry 98 Oxygen Delivery Method Room Air MDM - Dental/Oral <ADRIANA Love-Jodi - Last Filed: 07/18/23 12:50> MDM Narrative Medical decision making narrative: MDM * differential diagnosis includes but not limited to dental infection, dental abscess * Prior records reviewed: Patient has not been here in the past * My lab interpretation: None obtained * My imgaing interpretation: None obtained * Clinical Decision Rules/Scores evaluated: None * Independent discussions with: None ED Course: This is a 48-year-old female presents emergency department due to suspected dental infection. No evidence of any abscesses or physical exam that would benefit from incision and drainage. Patient will be prescribed oral antibiotics. Prednisone to decrease inflammation and pain. Recommended Tylenol and ibuprofen as needed for the pain. Patient will follow up with her dentist on Thursday. Shared Decision Making: Discussed plan with patient who is comfortable with the plan. Social Considerations: None Disposition: Discharged to home Discharge Plan Departure Patient Disposition: Home Clinical Impression: Dental infection Instructions: DI for Dental Pain Activity Restrictions/Additional Instructions: Thank you for coming to the [facility] Emergency Department today. Please take the medications as prescribed. Please follow up with your dentist on Thursday for further management and a long-term solution. I sent your medications to [facility] in [place]. I hope you feel better soon. Please follow up with your primary care provider within a week if your symptoms continue. If you do not have a primary care provider please contact the [facility] Resource line at [phone]. They will ask some questions about your medical history and help you get set up with a provider in the community. Prescriptions: New penicillin V potassium 250 mg tablet 250 mg PO QID 10 Days Qty: 40 0RF prednisone 20 mg tablet 40 mg PO DAILY Qty: 10 0RF Referrals: Rex Bee MD [Primary Care Provider] - Stand Alone Forms: Patient Portal/API ED Sign-out <Ronaldo Bills DO - Last Filed: 07/18/23 16:02> Cosign ED Attending Rodney Attestation: I was immediately available in the department for consultation. Documentation has been reviewed. I agree with assessment and plan.
== END 2023-07-18 13:02 | disposition home or self-care (01) ==
PROVIDERS: Emergency Provider Physician Assistant Medical; PCP Family Medicine
DX: K04.7 Periapical abscess without sinus (principal)
CPT/HCPCS: 99281; 99283